=== PATIENT | male | born 1990 | race African-American/Black ===

== ENCOUNTER 2019-10-29 19:41 | Emergency (ER) | payer BC, OTHER ==
[2019-10-29 20:20] VITALS: BP 127/88; PULSE 78; TEMP 98.6; BMI 31.1
[2019-10-29] MEDS ORDERED: IBUPROFEN 600 MG TABLET (FP) PO ONE ×2 (20:57→20:59)
--- NOTE | 2019-10-29 22:13 | PDOC ---
History of Present Illness - General Chief Complaint: Pain Stated Complaint: HAND PAIN Time Seen by Provider: 10/29/19 20:57 History Source: Patient Exam Limitations: No Limitations - History of Present Illness Initial Comments: 10/29/19 22:00 HISTORY OF PRESENT ILLNESS: 29-year-old male presents emergency department for atraumatic left wrist pain worsening over the past 3 to 4 days. 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 He denies any trauma. Has not taken anything for the pain. [id number]. No recent travel or sick contacts. PAST MEDICAL HISTORY: Asthma SURGICAL HISTORY: Denies ALLERGIES: No known drug allergies REVIEW OF SYSTEMS General/Constitutional: Denies fever or chills. Denies weakness, weight change. HEENT: Denies change in vision. Denies ear pain or discharge. Denies sore throat. Cardiovascular: Denies chest pain or shortness of breath. Respiratory: Denies cough, wheezing, or hemoptysis. Gastrointestinal: Denies nausea, vomiting, diarrhea or constipation. Denies rectal bleeding. Genitourinary: Denies dysuria, frequency, or change in urination. Musculoskeletal: See HPI Skin and breasts: Denies rash or easy bruising. Neurologic: Denies headache, vertigo, loss of consciousness, or loss of sensation. Psychiatric: Denies depression or anxiety. Endocrine: Denies increased thirst. Denies abnormal weight change. Hematologic/Lymphatic: Denies anemia, easy bleeding, or history of blood clots. Allergic/Immunologic: Denies hives or skin allergy. Denies latex allergy. PHYSICAL EXAM General Appearance: Well-appearing, appropriately dressed. No apparent distress , no intoxication. Vascular Pulses: Radial (R): 2+, radial (L): 2+ Musculoskeletal/Extremities: Normal capillary refill. No CVA tenderness. No deformity. Tenderness present to the dorsum of the left wrist with decreased flexion and extension secondary to pain. Able to passively flex and extend the wrist. No deformity or crepitus present. Erythema present over the left wrist extending on the dorsum of the left hand to the level of the MCP. Neurovascularly intact. 10/29/19 22:27 Past History - Past Medical History Allergies/Adverse Reactions: Allergies Allergy/AdvReac Type Severity Reaction Status Date / Time No Known Allergies Allergy Verified 10/29/19 20:15 Home Medications: Ambulatory Orders Colchicine 0.6 mg PO BID #6 tablet 10/29/19 Indomethacin 50 mg PO TID #12 capsule 10/29/19 Asthma: Yes COPD: No Diabetes: No HTN: No Hypercholesterolemia: No Thyroid Disease: No - Surgical History Abdominal Surgery: No - Psycho Social/Smoking Cessation Hx Smoking Status: No Smoking History: Never smoked Have you smoked in the past 12 months: No Number of Cigarettes Smoked Daily: 0 Information on smoking cessation initiated: No Hx Alcohol Use: Yes Drug/Substance Use Hx: No Substance Use Type: None *Physical Exam - Vital Signs Last Vital Signs Temp Pulse Resp BP Pulse Ox 98.6 F 78 18 127/88 100 10/29/19 20:12 10/29/19 20:12 10/29/19 20:12 10/29/19 20:12 10/29/19 20:12 ED Treatment Course - RADIOLOGY Radiology Studies Ordered: Category Date Time Status WRIST W/HAND-LEFT* [RAD] Stat Radiology 10/29/19 20:57 Taken - Medications Given in the ED: ED Medications Discontinued Medications Generic Name Dose Route Start Last Admin Trade Name Arisq PRN Reason Stop Dose Admin Ibuprofen 600 mg 10/29/19 20:57 10/29/19 21:01 Motrin - PO 10/29/19 20:58 600 mg ONCE ONE Administration Medical Decision Making - Medical Decision Making 10/29/19 22:23 A/P: 29-year-old male with atraumatic left wrist pain gradually worsening over the past 3 to 4 days. Pain worsens with flexion and extension of the wrist. Erythema present to the dorsum of the left wrist. X-rays as read by me: No acute fractures dislocations present. Densities noted in the soft tissue on the dorsum of the wrist seen in the lateral views. Motrin 600 mg orally now Patient reports his father has a history of gout and over the past week the patient has been eating a high purine diet and consuming alcoholic beverages. He noted the pain got worse as he ate more purines and increased his alcohol intake. Densities noted on the x-ray with appearance of crystals. Uric acid levels BMP Adrian wrap Information regarding low purine diet has been provided to the patient. Discharge home with prescriptions for indomethacin and colchicine and to follow- up with his primary doctor. I discussed the physical exam findings, ancillary test results and final diagnoses with the patient. I answered all of the patient's questions. The patient was satisfied with the care received and felt comfortable with the discharge plan and treatment plan. The patient will call their primary care physician within 24 hours to arrange follow-up and will return to the Emergency Department with any new, persistent or worsening symptoms. Portions of this note have been documented using voice recognition software. As a result, errors may occur in the subassembly assembler process. Effort has been made to correct all grammatical and subassembly assembler error, but some may have been missed which may produce sporadic inaccurate subassembly assembler or nonsensical phrases. Discharge - Discharge Information Problems reviewed: Yes Clinical Impression/Diagnosis: Gout Qualifiers: Gout site: wrist Gout etiology: unspecified cause Chronicity: acute Laterality : left Qualified Code(s): M10.9 - Gout, unspecified Condition: Fair Disposition: HOME - Admission No - Additional Discharge Information Prescriptions: Colchicine 0.6 mg PO BID #6 tablet Indomethacin 50 mg PO TID #12 capsule - Follow up/Referral CallBack Reminder: results - Patient Discharge Instructions Patient Printed Discharge Instructions: Low-Purine Diet Additional Instructions: Your emergency department visit is incomplete until you follow-up with your primary doctor. You will receive a call when your laboratory testing has been completed with the results. It is important that you write these down and bring them to your primary doctor. Take colchicine 0.6 mg twice a day for the next 3 days. Take indomethacin 50 mg 3 times a day for the next 4 days. Do not take Motrin or Aleve while taking these medications. You may add Tylenol as directed by paper bag inspector's instructions for pain. You have been given information about a low purine diet. Please try to follow to help decrease length of symptoms. Return to the emergency department for any new or worsening symptoms. Thank you very much for choosing us to provide your emergent healthcare needs. - Post Discharge Activity Work/Back to School Note: Back to Work
[2019-10-29 22:39] LABS: URIC ACID 5.5 mg/dL (2.6-7.2)
[2019-10-30 12:41] LABS: BLOOD UREA NITROGEN 13.9 mg/dL (7-18); CALCIUM 9.8 mg/dL (8.5-10.1); CREATININE 1.2 mg/dL (0.55-1.3); POTASSIUM 4.2 mmol/L (3.5-5.1)
== END 2019-10-29 22:31 | disposition home or self-care (01) ==
LOC: JERFT 19:41
DX: M10.9 Gout, unspecified (principal)
CPT/HCPCS: 36415; 73110-TC-LT-FY; 73130-TC-LT-FY; 80048; 84550; 99284-25